=== PATIENT | female | born 1945 | race Caucasian/White ===

== ENCOUNTER → 2019-12-03 17:44 | Outpatient (BNVA) | payer MEDICARE, OTHER, SELFPAY | PROVIDERS: Family Provider Family Medicine; Visit Provider Family Medicine | DX: E03.9 Hypothyroidism, unspecified (principal); M25.50 Pain in unspecified joint; I10 Essential (primary) hypertension; G30.1 Alzheimer's disease with late onset; K21.9 Gastro-esophageal reflux disease without esophagitis; F32.9 Major depressive disorder, single episode, unspecified; E11.9 Type 2 diabetes mellitus without complications | CPT/HCPCS: 80053; 83036; 83735; 84439; 84443; 84481; 85651; 86140 ==

== ENCOUNTER 2021-03-28 20:50 | Observation (INO) | payer MEDICARE, OTHER, SELFPAY ==
[2021-03-28 20:55] VITALS: BP 148/81; PULSE 95; RESP 16; TEMP 36.7; O2SAT 96; BMI 28.3
--- NOTE | 2021-03-28 21:19 | XRR_ITS ---
PROCEDURE INFORMATION: Exam: XR Chest Exam date and time: 03/28/2021 9:19 PM Age: 75 years old Clinical indication: Dyspnea; Additional info: Reduced breath sounds TECHNIQUE: Imaging protocol: XR of the chest. Views: 1 view. COMPARISON: No relevant prior studies available. FINDINGS: Lungs: There is some indistinctness of the pulmonary vasculature seen. Increased linear and hazy opacities are present in the lower hemithoraces bilaterally. This may represent atelectasis although a bilateral basilar pneumonitis cannot be excluded. Additionally, these findings could represent mild pulmonary edema. Pleural spaces: Unremarkable. No pleural effusion. No pneumothorax. Heart/Mediastinum: Unremarkable. No cardiomegaly. Bones/joints: Unremarkable. XR/XR chest 1V portable [id number] IMPRESSION: Increased hazy linear opacities in the lower hemithoraces bilaterally and mild indistinctness of the pulmonary vasculature could represent pulmonary edema. Bilateral basilar atelectasis or pneumonitis cannot be excluded as well.
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
[2021-03-28 21:23] VITALS: PULSE 79
--- NOTE | 2021-03-28 21:23 | ECG_ITS ---
[facility] Test Date: 2021-03-29 Pat Name: Floresita Evans Department: Room: 278 Gender: Female Web Content Coordinator: jensen : 1945 Requested By: Delmar Garnett Order Number: [id number] Jered MD: Paulina Blakely M.D. Measurements Intervals [place] Rate: 79 P: 66 ID: [id number] QRS: 42 QRSD: 85 T: 42 QT: 391 QTc: 449 Interpretive Statements SINUS RHYTHM No previous ECG available for comparison Electronically Signed On 03-29-2021 10:06:02 CDT by Paulina Blakely M.D. [id number]
[2021-03-28 21:47] LABS: Basophils % 0.5 %; Eosinophils # 0.1 10^3/uL (0.0-0.8); Eosinophils % 0.8 %; Hematocrit 35.8 % (37.0-47.0); Hemoglobin 11.7 g/dL (11.5-15.3); Lymphocytes # 0.6 10^3/uL (0.8-4.8); Lymphocytes % 8.5 %; Mean Corpuscular HGB Conc 32.7 g/dL (30.0-36.0); Mean Corpuscular Volume 82.7 fL (81-99); Mean Platelet Volume 9.4 fL (7.4-10.4); Monocytes # 0.6 10^3/uL (0.2-0.9); Monocytes % 9.5 %; Neutrophils # 5.22 10^3/uL (1.8-7.7); Neutrophils % 79.5 %; Nucleated Red Blood Cells % 0 %; Platelet Count 126 10^3/cmm (130-400); Red Blood Count 4.33 10^6/uL (4.1-5.3); Red Cell Distribution Width 14.6 % (12.1-15.1); White Blood Count 6.6 10^3/uL (4.0-10.0)
[2021-03-28] MEDS: sodium chloride 0.9% 1,000 ML 999 ML IV (21:50)
[2021-03-28 22:06] LABS: Lactate (Lactic Acid level) 4.5 mmol/L (0.5-2.2)
[2021-03-28 22:07] LABS: Troponin(5th) Baseline 33 ng/L (0-10)
[2021-03-28 22:17] LABS: Alanine Aminotransferase 28 U/L (0-33); Albumin Level 3.9 g/dL (3.5-5.2); Alkaline Phosphatase 157 IU/L (35-105); Blood Urea Nitrogen 10 mg/dL (8-23); Calcium 8.6 mg/dL (8.5-10.5); Carbon Dioxide 21 mmol/L (22-29); Chloride 103 mmol/L (98-107); Creatinine Clr Calc Pharmacy 61.4308; Globulin 1.8 g/dL (1.3-4.6); Glucose 445 mg/dL (65-115); NT Pro B Type Natriuretic Pept 259 pg/mL (0-450); Osmolality Calculated 308 mOsm/kg (285-295); Sodium 140 mmol/L (136-145); Thyroid Stimulating Hormone 1.36 uIU/mL (0.27-4.20); Total Bilirubin 0.2 mg/dL (0.15-1.2); Total Protein 5.7 g/dL (6.6-8.7)
[2021-03-28 22:20] LABS: Acetaminophen < 5.0 ug/mL (10-30); Alcohol Level < 10 mg/dL (0-10); Anion Gap 19.5 (5-19); Potassium 3.5 mmol/L (3.5-5.1); Salicylate < 0.3 mg/dL (3-10)
[2021-03-28 22:21] LABS: Aspartate Amino Transferase 27 U/L (0-32)
[2021-03-28 23:31] LABS: Add Urine Microscopic? NO; Charge for UA Resulting for Rev
[2021-03-28 23:34] LABS: Bilirubin Urine Neg (Negative); Blood Urine Neg (Negative); Glucose Urine UA 4+ (Normal); Ketones Urine Negative (Negative); Leukocyte Esterase Urine Negative (Negative); Nitrate Urine Negative (Negative); Protein Urine Neg (Negative); Urine Appearance Clear (CLEAR); Urine Color Yellow (Yellow); Urobilinogen Urine Norm (Negative); pH Urine 5 (5-7)
[2021-03-28 23:43] LABS: Amphetamines Screen Urine Negative (Negative); Barbiturates Screen Urine Negative (Negative); Benzodiazepines Screen Urine Negative (Negative); Cocaine Screen Urine Negative (Negative); Opiate Screen Urine Positive (Negative); PCP Screen Urine Negative (Negative); THC Screen Urine Negative (Negative)
[2021-03-28 23:55] LABS: ABG PCO2 37.9 mmHg (35-45); ABG PH Result 7.44 (7.35-7.45); Alveolar-Arterial Oxygen Gradi 1.7 mmHg (5-10); Arterial Blood Gas Hematocrit 35.8 % (37-47); Base Excess ABG 1.5 mmol/L (-2.0-2.0); Blood Gas Allen Test Pos; Blood Gas Sample Site Radial, right; Blood Gas Sample Type Arterial; Carboxyhemoglobin 0.8 %THgb (0.4-20.1); HCO3 ABG 25.7 mmol/L (22-26); HGB O2 Sat 97.2 % (95-100); Ionized Calcium Level - ABG 1.2 mmol/L (1.1-1.4); Methemoglobin 0.4 % (0.4-1.5); Oxygen Device ROOM AIR; Oxygen Saturation ABG 98.4; PO2 ABG 89.1 mmHg (80.0-100.0); Potassium Level - ABG 3.6 mmol/L (3.5-5.0); Total Hemoglobin 11.7 g/dL (12-16)
[2021-03-29] VITALS (8 sets, daily range): BP systolic 113–154; BP diastolic 55–77; PULSE 69–87; RESP 17–22; TEMP 36.4–37; O2SAT 95–98
[2021-03-29 00:19] LABS: SARS Covid-2 Antigen Negative (Negative)
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
[2021-03-29 01:26] LABS: Lactate (Lactic Acid level) 3.5 mmol/L (0.5-2.2)
[2021-03-29 01:42] LABS: NT Pro B Type Natriuretic Pept 263 pg/mL (0-450)
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
[2021-03-29 04:58] LABS: Glucose Point of Care 322 mg/dL (70-110)
[2021-03-29] MEDS: sodium chlor 0.9% + KCl 20 mEq 20 MEQ/1,000 ML BAG 100 MEQ IV (05:30)
--- NOTE | 2021-03-29 06:06 | USCV_ITS ---
Floresita Evans Age: 75 Gender: F : 1945 Exam Date: 03/29/2021 05:57 Ordering Phys: Shanice Gutiérrez MD Technologist: Tessa Gonzalez Exam Location: [facility] [place] Indication: SWOLLEN LEFT LEG HISTORY: Swollen and lt leg PROCEDURES: Venous duplex imaging was performed in only the left lower extremity. The following venous structures were evaluated: common femoral vein, profunda vein, proximal portion of the greater saphenous vein, superficial femoral vein, and the popliteal vein. In addition, the posterior tibial and peroneal trunk were evaluated. Serial compression, augmentation maneuvers, and spectral Doppler flow evaluation were performed. FINDINGS: No DVT seen in any vessel examined CONCLUSIONS No evidence of left lower extremity DVT. Jude Nguyễn MD (Electronically Signed) Final Date: 29 March 2021 08:52 S
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
--- NOTE | 2021-03-29 06:59 | ECG_ITS ---
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 Measurements Intervals Guys Rate: 77 P: 70 IA: 149 QRS: 32 QRSD: 90 T: 29 QT: 382 QTc: 433 Interpretive Statements SINUS RHYTHM Compared to ECG 03/29/2021 02:51:16 No significant changes Electronically Signed On 03-29-2021 10:11:22 CDT by Paulina Blakely M.D. [id number]
[2021-03-29 07:36] LABS: Basophils % 0.4 %; Eosinophils # 0.1 10^3/uL (0.0-0.8); Eosinophils % 1.6 %; Hematocrit 34.9 % (37.0-47.0); Lymphocytes # 0.7 10^3/uL (0.8-4.8); Lymphocytes % 15.3 %; Mean Corpuscular HGB Conc 31.5 g/dL (30.0-36.0); Mean Corpuscular Hemoglobin 26.7 pg (28.0-34.0); Mean Corpuscular Volume 84.7 fL (81-99); Monocytes # 0.5 10^3/uL (0.2-0.9); Monocytes % 10.4 %; Neutrophils # 3.13 10^3/uL (1.8-7.7); Neutrophils % 69.6 %; Nucleated Red Blood Cells % 0 %; Platelet Count 107 10^3/cmm (130-400); Red Blood Count 4.12 10^6/uL (4.1-5.3); Red Cell Distribution Width 14.7 % (12.1-15.1); White Blood Count 4.5 10^3/uL (4.0-10.0)
[2021-03-29 07:47] LABS: Estmated Average Glucose 235; Hemoglobin A1C 9.8 % (4.0-6.0)
[2021-03-29 07:56] LABS: Lactate (Lactic Acid level) 1.6 mmol/L (0.5-2.2)
[2021-03-29 07:57] LABS: Alanine Aminotransferase 23 U/L (0-33); Albumin Level 3.2 g/dL (3.5-5.2); Alkaline Phosphatase 120 IU/L (35-105); Anion Gap 12.1 (5-19); Aspartate Amino Transferase 18 U/L (0-32); Blood Urea Nitrogen 8 mg/dL (8-23); Carbon Dioxide 27 mmol/L (22-29); Chloride 104 mmol/L (98-107); Creatinine Clr Calc Pharmacy 61.4308; Globulin 2.2 g/dL (1.3-4.6); Glucose 294 mg/dL (65-115); Magnesium 1.5 mg/dL (1.7-2.3); Osmolality Calculated 299 mOsm/kg (285-295); Potassium 3.1 mmol/L (3.5-5.1); Sodium 140 mmol/L (136-145); Total Bilirubin 0.2 mg/dL (0.15-1.2); Total Protein 5.4 g/dL (6.6-8.7)
[2021-03-29 08:16] LABS: Troponin(5th) Baseline 34 ng/L (0-10)
[2021-03-29] MEDS: docusate sodium 100 mg Capsule PO ×2 (08:42→18:23)
[2021-03-29 09:46] LABS: Troponin 5 2HR 33.65 ng/L (0-10)
[2021-03-29 09:48] LABS: Troponin 5 2HR Delta -0.35 ABS# (0-10)
--- NOTE | 2021-03-29 09:49 | PC.PHAR ---
PTS SATINDER [phone] VERIFIED PTS MEDICATIONS
[2021-03-29] MEDS: magnesium sulfate premix 2 GM/50 ML PIGGYBACK IV (10:47)
[2021-03-29] MEDS: lidocaine 1% 5 ML in potassium chloride premix 100 ML 25 ML IV (10:54)
--- NOTE | 2021-03-29 10:59 | ECG_ITS ---
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 Measurements Intervals [place] Rate: 74 P: 73 IN: 151 QRS: 34 QRSD: 84 T: 21 QT: 389 QTc: 432 Interpretive Statements SINUS RHYTHM LOW QRS VOLTAGE IN PRECORDIAL LEADS [QRS DEFLECTION < 1.0 mV IN CHEST LEADS] Compared to ECG 03/29/2021 09:57:00 Low QRS voltage now present Electronically Signed On 03-29-2021 22:55:59 CDT by Paulina Blakely M.D. [id number]
[2021-03-29 11:21] LABS: Glucose Point of Care 209 mg/dL (70-110)
[2021-03-29 12:51] LABS: Magnesium 1.5 mg/dL (1.7-2.3)
[2021-03-29 13:34] LABS: Troponin 5 6HR 29.58 ng/L (0-10)
[2021-03-29 13:38] LABS: Troponin 5 6HR Delta -4.42 ng/L (0-12)
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
--- NOTE | 2021-03-29 14:02 | P.PN_ITS ---
Subjective Subjective: Interval history: History and physical reviewed. Patient denies any complaints this morning. She states she is forgetful, and has Alzheimer's dementia. Medications: Reviewed: Yes Vitals/I&O/Wt Last Vital Signs Temp 97.5 F L 03/29/21 11:44 Pulse 76 03/29/21 11:44 Resp 18 03/29/21 11:44 BP 126/55 03/29/21 11:44 Pulse Ox 97 03/29/21 11:44 03/28/21 03/29/21 03/29/21 22:59 06:59 14:59 Intake Total 1000 / 1000 290 / 290 Balance 1000 / 1000 290 / 290 Weight last 48 hrs Weight 77.111 kg Physical Exam Narrative: EXAM NARRATIVE: General exam no apparent distress Cardiovascular regular rate and rhythm Lungs clear Abdomen is soft positive bowel sounds Extremities no cyanosis clubbing or edema Neurologic: No obvious focal deficits, alert and can state that she is at a hospital but has no idea where. Knows the year but has no idea of the month, guesses November. Data : 03/29/21 07:11 03/29/21 07:11 A&P Assessment and plan (1) Behavioral disturbance due to late onset Alzheimer dementia: Has dementia with behaviors Medication could exacerbate. I will leave off Klonopin, ropinirole. Reduce serotonin. Psychiatric consultation. Behavioral disturbance related to dementia is current diagnosis although need to rule out medical cause such as related to uncontrolled diabetes, pain and swelling in her left lower extremity, medication effect (withdrawal or overuse), cardiovascular process or other abnormality. Urine drug screen is positive for opiates and I do not see them on any available old medication list nor administered in the emergency room. Status: Acute (2) Uncontrolled diabetes mellitus with hyperglycemia: Chronically diet controlled per available records Status: Acute (3) Left leg pain: Venous stasis noted Venous duplex negative for DVT Status: Acute (4) Elevated lactic acid level: Status: Acute (5) KENIA (generalized anxiety disorder): Status: Acute (6) Hypothyroidism: Status: Acute Qualifiers: Hypothyroidism type: acquired Qualified Code(s): E03.9 - Hypothyroidism, unspecified Additional A&P Information Diabetes mellitus. Sliding scale insulin. A1c is elevated at 9.8 Hypokalemia, hypomagnesemia. Supplement. Full code currently Add Lovenox for DVT prophylaxis Discharge planning for family's discharge needs. Currently she is not aggressive. Attestations Medical Necessity Statement*: Continue observation status. Not likely to need greater than 2 midnight stay. Coding Level of Care Code Acute [employer] Senior Officer for Chg Fwd Diagnoses Behavioral disturbance due to late onset Alzheimer dementia G30.1; F02.81 Uncontrolled diabetes mellitus with hyperglycemia E11.65 Left leg pain M79.605 Elevated lactic acid level R79.89 KENIA (generalized anxiety disorder) F41.1 Hypothyroidism E03.9 Hypothyroidism type: acquired
[2021-03-29] MEDS: enoxaparin 40 mg/0.4 mL Syringe SUBCUT (16:48)
[2021-03-29 17:22] LABS: Glucose Point of Care 207 mg/dL (70-110)
[2021-03-29] MEDS: timolol 0.5% Op Soln 5 mL Btl 1 DROP EYEAFF (18:23)
[2021-03-29] MEDS: memantine 5 mg tablet 10 MG PO (18:23)
[2021-03-29] MEDS: risperiDONE 0.25 mg Tablet PO (18:23)
[2021-03-29 20:43] LABS: Glucose Point of Care 231 mg/dL (70-110)
[2021-03-29] MEDS: latanoprost 0.005% Op Soln 2.5 mL Btl 1 DROP EYE-RIGHT (23:39)
[2021-03-30] VITALS: BP 106/64; PULSE 59; RESP 18; TEMP 37.2; O2SAT 94
[2021-03-30 04:00] VITALS: BP 127/57; PULSE 75; RESP 16; TEMP 37; O2SAT 97
[2021-03-30] MEDS: levothyroxine 50 mcg Tablet PO (05:25)
[2021-03-30 05:35] LABS: Basophils % 0.8 %; Eosinophils # 0.1 10^3/uL (0.0-0.8); Eosinophils % 2.1 %; Hematocrit 38.4 % (37.0-47.0); Hemoglobin 11.7 g/dL (11.5-15.3); Lymphocytes # 0.8 10^3/uL (0.8-4.8); Lymphocytes % 16.7 %; Mean Corpuscular HGB Conc 30.5 g/dL (30.0-36.0); Mean Corpuscular Hemoglobin 26.5 pg (28.0-34.0); Mean Corpuscular Volume 86.9 fL (81-99); Mean Platelet Volume 9.7 fL (7.4-10.4); Monocytes # 0.5 10^3/uL (0.2-0.9); Monocytes % 9.8 %; Neutrophils # 3.17 10^3/uL (1.8-7.7); Neutrophils % 66.2 %; Nucleated Red Blood Cells % 0 %; Platelet Count 101 10^3/cmm (130-400); Red Blood Count 4.42 10^6/uL (4.1-5.3); White Blood Count 4.8 10^3/uL (4.0-10.0)
[2021-03-30 05:52] LABS: Alanine Aminotransferase 23 U/L (0-33); Albumin Level 3.1 g/dL (3.5-5.2); Alkaline Phosphatase 83 IU/L (35-105); Anion Gap 11.6 (5-19); Aspartate Amino Transferase 20 U/L (0-32); Blood Urea Nitrogen 11 mg/dL (8-23); Calcium 8.1 mg/dL (8.5-10.5); Carbon Dioxide 25 mmol/L (22-29); Chloride 110 mmol/L (98-107); Creatinine Clr Calc Pharmacy 61.4308; Globulin 2.4 g/dL (1.3-4.6); Glucose 183 mg/dL (65-115); Magnesium 1.7 mg/dL (1.7-2.3); Osmolality Calculated 300 mOsm/kg (285-295); Potassium 3.6 mmol/L (3.5-5.1); Sodium 143 mmol/L (136-145); Total Bilirubin 0.3 mg/dL (0.15-1.2); Total Protein 5.5 g/dL (6.6-8.7)
[2021-03-30 06:07] LABS: Glucose Point of Care 192 mg/dL (70-110)
--- NOTE | 2021-03-30 07:17 | PC.NURSE ---
Shift Summary pt slept well throughout the night. early in the evening, pt became emotional and crying stating she was scared and afraid. pt was comforted by nursing staff then fell asleep. no other behaviors.
[2021-03-30 07:41] VITALS: BP 144/71; PULSE 86; RESP 17; TEMP 36.8; O2SAT 99
[2021-03-30 11:06] LABS: Glucose Point of Care 258 mg/dL (70-110)
[2021-03-30] MEDS: multivitamin therapeutic Tablet 1 TAB PO (11:08)
[2021-03-30] MEDS: docusate sodium 100 mg Capsule PO ×2 (11:08→17:07)
[2021-03-30] MEDS: memantine 5 mg tablet 10 MG PO ×2 (11:08→17:07)
[2021-03-30] MEDS: pantoprazole DR 40 mg Tablet PO (11:08)
[2021-03-30] MEDS: risperiDONE 0.25 mg Tablet PO ×2 (11:08→18:00)
[2021-03-30] MEDS: sertraline 100 mg Tablet 150 MG PO (11:09)
[2021-03-30 11:58] VITALS: BP 115/66; PULSE 76; RESP 17; TEMP 36.7; O2SAT 97
--- NOTE | 2021-03-30 13:05 | P.DS_ITS ---
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: Status: Acute (2) Uncontrolled diabetes mellitus with hyperglycemia: Status: Acute (3) Left leg pain: Status: Acute (4) Elevated lactic acid level: Status: Acute (5) KENIA (generalized anxiety disorder): Status: Acute (6) Hypothyroidism: Status: Acute Qualifiers: Hypothyroidism type: acquired Qualified Code(s): E03.9 - Hypoth yroidism, unspecified (7) Depression: Status: Acute Qualifiers: Depression Type: major depressive disorder Major depression recurrence: recurrent Active/Remission status: currently active Major depression episode severity: mild Qualified Code(s): F33.0 - Major depressive disorder, recurrent, mild (8) Paranoia: Status: Acute Reason for Visit Reason for Visit: AGGRESSIVE Hospital Course Hospital Course Floresita presented to the hospital with aggressive behavior. She has underlying dementia. An elevated lactic acid was also noted and uncontrolled diabetes. She was not on any medication for diabetes. After admission to the hospital she was quite calm. Risperdal 0.25 mg twice daily was added by psychiatry secondary to her underlying dementia with behaviors. I discussed this in detail with her , and risks associated with this such as cardiac arrhythmia and sudden cardiac although rare could occur. I discussed that the lowest dose possible to achieve quality of life is recommended. He will bring this up and follow-up with his primary care provider for further dose adjustments. From my understanding she also has psychiatric follow-up that is already been arranged. For her diabetes Metformin will be initiated. She has not been following her diabetic diet lately and has been is going to intervene on this. Although her lactate was high on admission I believe this was secondary to her agitation dehydration. She was not on Metformin coming into the hospital. A1c was checked in the hospital and 9.8. Other studies included a venous duplex which was negative for DVT and a head CT with no acute change. Discharge planning worked with the patient during her entire hospital stay and by the end we had arranged for senior living placement, but has been elected to take her home. Physical Exam Narrative: EXAM NARRATIVE: General exam no apparent distress, confused but appropriate Cardiovascular regular in rhythm without murmur Lungs clear Abdomen soft with positive bowel sounds Extremities no cyanosis clubbing or edema Discharge Data Data Completed and Pending: Completed Studies During Hospitalization Category Date Time Status CT head wo con* 7 0450 Urgent Cat Scan 03/28/21 21:19 Completed XR chest 1V rickie ble [id number] Urgent Exams 03/28/21 21:19 [place] [id number] Routin e Ultrasound 03/29/21 06:06 Completed Labs from last 24 hours 03/30/21 03/30/21 03/30/21 10:53 06:02 04:47 WBC RBC Hgb Hct MCV MCH MCHC RDW Plt Count MPV Neut % (Auto) Lymph % (Auto) Clinch % (Auto) Eos % (Auto) Baso % (Auto) Neut # (Auto) Lymph # (Auto) Clinch # (Auto) Eos # (Auto) Baso # (Auto) Nucleated RBC % (a uto) Nucleated RBCs # Sodium 143 Potassium 3.6 Chloride 110 H Carbon Dioxide 25 Anion Gap 11.6 BUN 11 Creatinine 0.6 GFR Calculation Not Reportable Glucose 183 H POC Glucose 258 H 192 H Calculated Osmolal ity 300 H Calcium 8.1 L Magnesium 1.7 Total Bilirubin 0.3 AST 20 ALT 23 Alkaline Phosphata se 83 Troponin T Hi Sens 6Hr Troponin T Hi Sens 6Hr Delta Total Protein 5.5 L Albumin 3.1 L Globulin 2.4 03/30/21 03/29/21 03/29/21 04:47 20:36 17:06 WBC 4.8 RBC 4.42 Hgb 11.7 Hct 38.4 MCV 86.9 MCH 26.5 L MCHC 30.5 RDW 15.0 Plt Count 101 L MPV 9.7 Neut % (Auto) 66.2 Lymph % (Auto) 16.7 Clinch % (Auto) 9.8 Eos % (Auto) 2.1 Baso % (Auto) 0.8 Neut # (Auto) 3.17 Lymph # (Auto) 0.8 Clinch # (Auto) 0.5 Eos # (Auto) 0.1 Baso # (Auto) 0.0 Nucleated RBC % (a uto) 0 Nucleated RBCs # 0.0 Sodium Potassium Chloride Carbon Dioxide Anion Gap BUN Creatinine GFR Calculation Glucose POC Glucose 231 H 207 H Calculated Osmolal ity Calcium Magnesium Total Bilirubin AST ALT Alkaline Phosphata se Troponin T Hi Sens 6Hr Troponin T Hi Sens 6Hr Delta Total Protein Albumin Globulin 03/29/21 13:11 WBC RBC Hgb Hct MCV MCH MCHC RDW Plt Count MPV Neut % (Auto) Lymph % (Auto) Clinch % (Auto) Eos % (Auto) Baso % (Auto) Neut # (Auto) Lymph # (Auto) Clinch # (Auto) Eos # (Auto) Baso # (Auto) Nucleated RBC % (a uto) Nucleated RBCs # Sodium Potassium Chloride Carbon Dioxide Anion Gap BUN Creatinine GFR Calculation Glucose POC Glucose Calculated Osmolal ity Calcium Magnesium Total Bilirubin AST ALT Alkaline Phosphata se Troponin T Hi Sens 6Hr 29.58 H Troponin T Hi Sens 6Hr Delta -4.42 L Total Protein Albumin Globulin Vitals: Last Vital Signs Temp 98.1 F 03/30/21 11:58 Pulse 76 03/30/21 11:58 Resp 17 03/30/21 11:58 BP 115/66 03/30/21 11:58 Pulse Ox 97 03/30/21 11:58 Discharge Plan Discharge Patient Disposition: Home Condition: Stable Prescriptions: New metformin 500 mg tablet 500 mg PO BID Qty: 60 RF: 0 risperidone 0.25 mg Tablet 0.25 mg PO BID Qty: 60 RF: 0 Continued timolol 0.5 % drops 1 drop ophthalmic (eye) QAM RF: 0 latanoprost 0.005 % drops 1 drop ophthalmic (eye) BEDTIME RF: 0 multivitamin [Daily Multi-Vitamin] Tablet 1 tab PO QAM RF: 0 lutein 20 mg capsule 20 mg PO BID RF: 0 memantine [Namenda] 10 mg tablet 10 mg PO BID 30 Days Qty: 60 RF: 2 sertraline [Zoloft] 100 mg tablet 150 mg PO DAILY 30 Days Qty: 30 RF: 2 (DME) Diabetic Shoes See Rx Instructions .ROUTE .MEDSUPPLY Qty: 1 RF: 0 oxybutynin chloride 10 mg tablet extended release 24hr 10 mg PO DAILY RF: 0 potassium chloride 10 mEq tablet extended release 10 meq PO DAILY RF: 0 levothyroxine 50 mcg tablet 50 mcg PO QAM RF: 0 pantoprazole 40 mg tablet,delayed release (DR/EC) 40 mg PO DAILY RF: 0 furosemide 20 mg tablet 10 - 20 mg PO QAM RF: 0 ergocalciferol (vitamin D2) 1,250 mcg (50,000 unit) capsule 50,000 unit PO Q7D RF: 0 Nystop 100,000 unit/gram powder 1 applic TOPICAL BID RF: 0 BenGay Arthritis Formula Cream 1 applic TOPICAL PRN RF: 0 glucosamine HCl 500 mg Tablet 2,000 mg PO QAM RF: 0 PreserVision AREDS-2 250-90-40-1 mg Capsule 1 cap PO DAILY RF: 0 Discontinued ropinirole 1 mg tablet 1 mg PO TID 30 Days Qty: 90 RF: 2 clonazepam 0.5 mg tablet 0.5 mg PO BID PRN (Reason: Anxiety) RF: 0 Discharge Orders: Discharge Order (Routine); Ordered 03/30/21 Ordered By: Rusty Marcos Referrals: Dorota Mena FNP [Primary Care Provider] - 4-7 days Discharge Diet: Diabetic Discharge Activity: Increase activity as tolerated Patient Instructions: Opioid Safety Activity Restrictions/Additional Instructions: Take all medicine as prescribed Follow-up with your primary care provider 3 to 5 days Discharge Attestations Time Spent in Discharge Care*: greater than 30 min Quality Metrics Clinical Quality Measures During this hospital stay, did patient experience: None Coding Level of Care Code Acute [facility] FW DC note Diagnoses 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
[2021-03-30 16:00] VITALS: BP 110/81; PULSE 85; RESP 16; TEMP 36.7; O2SAT 96
[2021-03-30 16:14] VITALS: BP 110/81; PULSE 85; RESP 16; TEMP 36.7; O2SAT 96
[2021-03-30 16:57] LABS: Glucose Point of Care 211 mg/dL (70-110)
[2021-03-30] MEDS: timolol 0.5% Op Soln 5 mL Btl 1 DROP EYEAFF (17:06)
[2021-03-30] MEDS: enoxaparin 40 mg/0.4 mL Syringe SUBCUT (17:06)
== END 2021-03-30 18:55 | disposition home or self-care (01) ==
LOC: ER 03-29 00:39 → MEDSURG 03-29 01:07
PROVIDERS: Admitting Provider Hospitalist; Emergency Provider Family Medicine; PCP Registered Nurse; Visit Provider Internal Medicine
DX: G30.1 Alzheimer's disease with late onset (principal); F02.81 Dementia in other diseases classified elsewhere, unspecified severity, with behavioral disturbance; E11.65 Type 2 diabetes mellitus with hyperglycemia; M79.605 Pain in left leg; R79.89 Other specified abnormal findings of blood chemistry; F41.1 Generalized anxiety disorder; E03.9 Hypothyroidism, unspecified; F33.0 Major depressive disorder, recurrent, mild; F22 Delusional disorders; E78.2 Mixed hyperlipidemia
CPT/HCPCS: 36415; 36416; 36600; 70450; 71045; 80051; 80053; 80306; 80307; 81003; 82330; 82805; 82962; 83036; 83605; 83735; 83880; 84443; 84484; 85025; 87426; 93005; 93971; 96361; 96365; 96366; 96367; 96372; 99285; G0378; J1650; J1815; J3475; J3480; J7030

== ENCOUNTER → 2021-09-14 10:00 | Outpatient (BNVA) | payer MEDICARE, OTHER, SELFPAY | PROVIDERS: PCP Registered Nurse; Visit Provider Nurse Practitioner Family | DX: N32.81 Overactive bladder (principal); N39.41 Urge incontinence; R35.0 Frequency of micturition | CPT/HCPCS: 81003 ==

== ENCOUNTER → 2021-10-13 15:22 | Outpatient (BNVA) | payer MEDICARE, OTHER, SELFPAY | PROVIDERS: PCP Registered Nurse; Visit Provider Urology | DX: R35.0 Frequency of micturition (principal) | CPT/HCPCS: 81003 ==

== ENCOUNTER 2022-03-31 14:18 | Outpatient (CLI) | payer MEDICARE, OTHER, SELFPAY ==
--- NOTE | 2022-03-31 14:30 | XR_ITS ---
WS: [id number] K[facility], AP view, 03/31/2022 Clinical Data: Left Nephrolithiasis Comparison: [facility], 03/28/2022. Findings: No abnormal intraabdominal masses are seen. There is no dilatated small bowel or evidence of obstruct ion. There is a 0.9 cm calcification overlying the left kidney. There are calcifications overlying the inf erior pelvis which may represent bladder calculi. There is air in the colon which obscures detail ove r the right kidney. There is a posterior lumbar fusion at L4-L5 with bilateral pedicle screws and con necting rods. There is an L5 laminectomy. Clips in the right upper quadrant represent a cholecystecto my. XR/XR KUB [id number] Impression: 1. Probable left renal calculus. 2. Possible bladder stone.
== END 2022-03-31 14:19 | disposition home or self-care (01) ==
PROVIDERS: PCP Registered Nurse; Visit Provider Urology
DX: N20.0 Calculus of kidney (principal); N39.41 Urge incontinence; R35.0 Frequency of micturition; N20.9 Urinary calculus, unspecified; R30.0 Dysuria; G30.1 Alzheimer's disease with late onset; F02.80 Dementia in other diseases classified elsewhere, unspecified severity, without behavioral disturbance, psychotic disturbance, mood disturbance, and anxiety
CPT/HCPCS: 52000; 74018; 81003; 99214

== ENCOUNTER 2022-04-15 07:47 | Outpatient (CLI) | payer MEDICARE, OTHER, SELFPAY ==
--- NOTE | 2022-04-15 08:00 | CT_ITS ---
WS: [id number] CT ABDOMEN AND PELVIS NONCONTRAST HISTORY: STONE TECHNIQUE: Imaging performed through the abdomen and pelvis. Coronal and sagittal reformats are submi tted. All CT scans at [facility] use at least one of these dose optimization techniques: auto mated exposure control; mA and/or kV adjustment per patient size (includes targeted exams where dose is matched to clinical indication); or iterative reconstruction. DLP: 1360.95 mGy.cm COMPARISON: [facility]UB 03/31/2022 Lower thorax: Benign granuloma at the lingula. Otherwise there some very mild scarring at the lung ba ses. No nodule or pneumonia. Heart is normal size. Moderate hiatal hernia. Liver: Normal size liver. No mass or bile duct dilatation. Gallbladder: Prior cholecystectomy. Mildly dilated common bile duct at 9 mm due to cholecystectomy mo st likely. Pancreas: Mild fatty replacement of the pancreas. Spleen: Normal. Adrenal glands: Normal. No mass. Right kidney: Perinephric stranding. Mild diffuse cortical thinning and atrophy. No hydronephrosis. U reter is normal course to the bladder. Calcifications adjacent to the distal RIGHT ureter appear to b e external to the urological system. Left kidney: Mild cortical thinning and atrophy. Nonobstructing calcification in the calyx of the mid kidney measures 7 mm in maximum diameter. Low-attenuation nodule measuring 11 mm in the mid kidney c annot be further characterized. No ureteral dilatation or calcification. Aorta: Mild atherosclerosis abdominal aorta with no aneurysm. No free fluid, intraperitoneal air or significant lymphadenopathy. GI tract: Moderately distended stomach with food products. No small bowel obstruction. Mild diffuse c onstipation. The appendix is none identified. Abdominal wall: Negative. No hernia. Pelvis: Well-distended urinary bladder. There is a calcification along the posterior wall of the blad kristyn but I believe this is probably external to the bladder. No free fluid or adenopathy in the pelvis . Prior hysterectomy. Osseous structures: Diffuse osteopenia. Mild straightening of the normal lordosis. Advanced facet jani nt and disc disease. CT/CT kidney stone [id number] IMPRESSION: 1. Nonobstructing 7 mm calcification mid LEFT kidney. 2. Mild bilateral renal atrophy and cortical thinning. 3. Prior cholecystectomy and hysterectomy. 4. Moderate-sized hiatal hernia. 5. Moderate diffuse constipation with no obstruction.
== END 2022-04-15 07:48 | disposition home or self-care (01) ==
LOC: RAD 07:50
PROVIDERS: PCP Registered Nurse; Visit Provider Urology
DX: N20.0 Calculus of kidney (principal); K44.9 Diaphragmatic hernia without obstruction or gangrene; K59.00 Constipation, unspecified; N20.9 Urinary calculus, unspecified; N39.41 Urge incontinence; R35.0 Frequency of micturition; G30.1 Alzheimer's disease with late onset; F02.80 Dementia in other diseases classified elsewhere, unspecified severity, without behavioral disturbance, psychotic disturbance, mood disturbance, and anxiety
CPT/HCPCS: 51798; 74176; 81003; 99213